=== PATIENT | male | born 1960 | race Caucasian/White ===

== ENCOUNTER 2018-08-18 05:45 | Day surgery (SDC) | payer OTHER ==
[2018-08-18] MEDS ORDERED: MIDAZOLAM 1 MG/ML 2 ML INJ ×2 (08:22)
[2018-08-18] MEDS ORDERED: FENTAnyl 50 MCG/ML VIAL (08:22)
== END 2018-08-18 15:12 | disposition home or self-care (01) ==
LOC: GIL 05:45
DX: K29.60 Other gastritis without bleeding (principal)
CPT/HCPCS: 43239; 88305